=== PATIENT | male | born 1940 | race Native Hawaiian/Other Pacific Islander ===

== ENCOUNTER 2017-10-09 08:33 | Outpatient (CLI) | payer OTHER ==
[2017-10-09 10:30] LABS: POTASSIUM 4.9 mmol/L (3.6-5.2)
== END 2017-10-09 23:38 | disposition home or self-care (01) ==
LOC: LABW 08:33
PROVIDERS: Internal Medicine
DX: I10 Essential (primary) hypertension (principal); R35.0 Frequency of micturition; Z12.5 Encounter for screening for malignant neoplasm of prostate; Z79.899 Other long term (current) drug therapy; Z51.81 Encounter for therapeutic drug level monitoring
CPT/HCPCS: 36415; 80053; 80061; 81000; 84153; 84402; 84403; 84439; 84443

== ENCOUNTER 2017-10-15 15:38 | Outpatient (CLI) | payer OTHER | END 2017-10-15 20:18 | disposition home or self-care (01) | LOC: RAD 15:38 | DX: M17.0 Bilateral primary osteoarthritis of knee (principal) ==

== ENCOUNTER 2018-03-18 08:16 | Outpatient (CLI) | payer OTHER ==
[2018-03-18 09:16] LABS: PLATELET COUNT 251 K/uL (142-355)
[2018-03-18 09:31] LABS: POTASSIUM 4.4 mmol/L (3.6-5.2)
== END 2018-03-18 20:20 | disposition home or self-care (01) ==
LOC: LABW 08:16
PROVIDERS: Internal Medicine
DX: I10 Essential (primary) hypertension (principal)
CPT/HCPCS: 36415; 80053; 80061; 81000; 84443; 85027

== ENCOUNTER 2018-12-02 09:30 | Outpatient (CLI) | payer OTHER ==
[2018-12-02 10:41] LABS: PLATELET COUNT 264 K/uL (142-355)
[2018-12-02 11:17] LABS: POTASSIUM 3.9 mmol/L (3.6-5.2)
== END 2018-12-02 23:15 | disposition home or self-care (01) ==
LOC: LABW 09:30
PROVIDERS: Internal Medicine
DX: I10 Essential (primary) hypertension (principal); E78.00 Pure hypercholesterolemia, unspecified; R35.0 Frequency of micturition
CPT/HCPCS: 36415; 80053; 80061; 81000; 84153; 84439; 84443; 85027